=== PATIENT | male | born 1930 | race Caucasian/White ===

== ENCOUNTER 2019-12-30 13:42 | Observation (INO) | payer OTHER ==
[~2019-12-30] VITALS: Ht 188 cm; Wt 77.6 kg
[2019-12-30 16:47] LABS: HEMATOCRIT 37.8 % (42.0-52.0); HEMOGLOBIN 12.6 gm/dL (14.0-18.0); MCH 32.5 pg (26.0-34.0); MCHC 33.3 g/dL (28.0-37.0); MCV 97.8 fL (80.0-100.0); RBC 3.86 mil/uL (4.50-6.00); RDW 13.1 % (10.5-14.5); WBC 5.7 thou/uL (4.0-11.0)
--- NOTE | 2019-12-30 17:00 | EKG ---
[facility] [place] [address] ELECTROCARDIOGRAM REPORT Name: MAIDHA KAUR Room #: 201-P ADM IN M.R.#: [id number] Admission: 12/30/19 Attend Phys: Sincere Slaughter MD, Discharge: Date of : 34 Report #: [id number] THIS REPORT FOR: cc: FAM - Family physician unknown FAM - Family physician unknown Carlton Chavarria MD [facility] ~ THIS REPORT FOR: //name// [facility] Test Date: 2019-12-30 Test Time: 16:38:46 Pat Name: MADIHA KAUR Department: Room: 201 P Gender: M Despatch Clerk: : 1930 Requested By: Dena Heath Order Number: [id number] MD: Carlton Chavarria Measurements Intervals [place] Rate: 61 P: 20 RI: 191 QRS: 37 QRSD: 97 T: 5 QT: 506 QTc: 510 Interpretive Statements Sinus rhythm Abnormal inferior Q waves Nonspecific T abnormalities, lateral leads Prolonged QT interval No previous ECG available for comparison Electronically Signed On 12-30-2019 17:00:13 CASH VAN SALESPERSON by Carlton Chavarria [email or web address] <ELECTRONICALLY SIGNED> By: Carlton Chavarria MD, FACC 12/30/19 1700 1638 37 Carlton Chavarria MD, [facility] /EPI
[2019-12-30 17:40] LABS: ALBUMIN 3.9 g/dL (3.4-5.0); ANION GAP 10 mmol/L (7-16); BUN 21 mg/dL (7-18); CALCIUM 8.6 mg/dL (8.5-10.1); CHLORIDE 107 mmol/L (98-107); CO2 25 mmol/L (21-32); CREATININE 1.1 mg/dL (0.7-1.3); GLUCOSE 107 mg/dL (74-106); POTASSIUM 3.5 mmol/L (3.5-5.1); SGOT 29 U/L (15-37); SGPT 19 U/L (30-65); SODIUM 142 mmol/L (136-145); TOTAL BILIRUBIN 1.5 mg/dL (0.2-1.0); TOTAL PROTEIN 7.5 g/dL (6.4-8.2); TROPONIN-I <0.06 ng/mL (<0.06)
[2019-12-30 18:43] VITALS: BP 148/71
[2019-12-30 19:52] VITALS: BP 169/78
--- NOTE | 2019-12-30 19:53 | NUR ---
NEW ADMIT FOR SOB AND CHEST HEAVINESS. DIRECT ADMIT FOR DR VELÁZQUEZ. ALERTX4 FROM HOME WITH . UP AB GARY. NPO TONIGHT FOR A CATH IN MORNING. ADMISSION COMPLETED. CONSENTS SIGNED. CALLS FOR ASSISTANCE.
[2019-12-30 23:47] VITALS: BP 138/68
[2019-12-31] VITALS (10 sets, daily range): BP systolic 148–182; BP diastolic 63–98
--- NOTE | 2019-12-31 04:52 | NUR ---
ASSUMED PT CARE AT THE CHNAGE OF SHIFT, PT IS AWAKE, ALERT AND ORIENTED, SR ON THE MONITOR, DENIES CHEST PAIN OR SOA, REMAINED NPO AFTER MIDNIGHT, NO ACUTE DISTRESS NOTED, WILL CONTINUE TO MONITOR
--- NOTE | 2019-12-31 07:41 | EKG ---
[facility] [place] [address] ELECTROCARDIOGRAM REPORT Name: MADIHA KAUR Room #: 201-P ADM IN M.R.#: [id number] Admission: 12/30/19 Attend Phys: Sincere Slaughter MD, Discharge: Date of : 34 Report #: [id number] THIS REPORT FOR: cc: ABHINAV - Family physician unknown FAM - Family physician unknown Carlton Chavarria MD [facility] ~ THIS REPORT FOR: //name// [facility] Test Date: 2019-12-31 Test Time: 07:03:27 Pat Name: MADIHA KAUR Department: Room: 201 P Gender: M Machine Bobbin Winder: SBULNANCY : 1930 Requested By: Sincere Slaughter Order Number: [id number] MD: Carlton Chavarria Measurements Intervals [place] Rate: 62 P: 34 AL: 179 QRS: 28 QRSD: 86 T: 19 QT: 519 QTc: 528 Interpretive Statements Sinus rhythm Left atrial enlargement Borderline T wave abnormalities Prolonged QT interval Compared to ECG 12/30/2019 16:38:46 Atrial abnormality now present Inferior Q waves no longer present Q waves no longer present T-wave abnormality still present Electronically Signed On 12-31-2019 7:41:41 CLINICAL PROJECT ASSISTANT by Carlton Chavarria [email or web address] <ELECTRONICALLY SIGNED> By: Carlton Chavarria MD, FACC 12/31/19 0741 2 2 Carlton Chavarria MD, FACC /EPI
[2019-12-31] MEDS ORDERED: CLOPIDOGREL75 MG PO (09:57)
[2019-12-31] MEDS ORDERED: FLORINEF ACETA0.1 MG PO ×2 (09:57→11:26)
[2019-12-31] MEDS ORDERED: SIMVASTATIN80 MG PO (11:13)
[2019-12-31] MEDS ORDERED: FISH OIL 1,001000 M3 PO (11:15)
[2019-12-31] MEDS ORDERED: NITROSTAT0.3 MG SUBLING (11:17)
[2019-12-31] MEDS ORDERED: SINGULAIR 10 MG10 MG PO (11:19)
[2019-12-31] MEDS ORDERED: RANITIDINE PO (11:24)
[2019-12-31] MEDS ORDERED: LISINOPRIL20 MG PO (11:25)
[2019-12-31] MEDS ORDERED: FLUNISOLIDE25 ML NASAL (11:27)
[2019-12-31] MEDS ORDERED: ASA81BEC PO (11:28)
[2019-12-31] MEDS ORDERED: PLAVIX 75 MG TA75 MG PO (11:28)
--- NOTE | 2019-12-31 12:50 | 2DMMODE ---
[facility] [place] [address] 2 D/M-MODE ECHOCARDIOGRAM Name: MADIHA KAUR Room #: 201-P ADM Mikala M.R.#: [id number] Admission: 12/30/19 Attend Phys: Sincere Slaughter MD, Discharge: Date of : 34 Report #: [id number] THIS REPORT FOR: cc: FAM - Family physician unknown FAM - Family physician unknown Cesario Ivory MD [facility] ~ APPROVED REPORT Study performed: 12/31/2019 10:50:13 EXAM: Comprehensive 2D, Doppler, and color-flow Echocardiogram Patient Location: Bedside Room #: 201 Status: routine BSA: 2.03 HR: 51 bpm BP: 156/87 mmHg Rhythm: Bradycardia Other Information Study Quality: Good Indications CAD Chest Pain Hypertension/HDD AVR 2D Dimensions RVDd: 40.27 mm IVSd: 9.59 (7-11mm) LVOT Diam: 19.38 (18-24mm) LVDd: 55.38 mm PWd: 11.50 (7-11mm) Ascending Ao: 28.10 (22-36mm) LVDs: 37.23 (25-40mm) Aortic Root: 26.99 mm IVC: 22.00 mm Volumes Left Atrial Volume (Systole) Single Plane 4CH: 80.76 mL Single Plane 2CH: 88.60 mL LA ESV Index: 45.00 mL/m2 Aortic Valve AoV Peak Fransisco.: 2.25 m/s AO Peak Gr.: 20.25 mmHg LVOT Max P.79 mmHg [facility] [address] [place] [address] 2 D/M-MODE ECHOCARDIOGRAM Name: MADIHA KAUR Room #: 201-P [facility] IN M.R.#: [id number] Admission: 12/30/19 Attend Phys: Sincere Slaughter, Discharge: Date of : 34 Report #: [id number] LVOT Max V: 1.20 m/s RACHEL Vmax: 1.58 cm2 Mitral Valve E/A Ratio: 0.7 MV Decel. Time: 369.65 ms MV E Max Fransisco.: 0.65 m/s MV A Fransisco.: 0.89 m/s MV PHT: 107.20 ms IVRT: 152.25 ms Pulmonary Valve PV Peak Fransisco.: 1.40 m/s PV Peak Gr.: 7.82 mmHg Pulmonary Vein P Vein S: 0.61 m/s P Vein A: 0.23 m/s P Vein D: 0.36 m/s P Vein A Dur.: 101.5 msec P Vein S/D Ratio: 1.69 Tricuspid Valve TR Peak Fransisco.: 3.02 m/s TR Peak Gr.: 36.49 mmHg PA Pressure: 46.00 mmHg Left Ventricle The left ventricle is normal size. There is normal LV segmental wall motion. There is normal left ventricular wall thickness. The left ventricular systolic function is normal. The left ventricular ejection fraction is within the normal range. LVEF is 55-60%. Mild diastolic dysfunction Right Ventricle The right ventricle is normal size. The right ventricular systolic function is normal. Atria Left atrium is dilated. Right atrium is at the upper limits of normal. 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 No aortic regurgitation is present. There is no aortic valvular stenosis. Mitral Valve The mitral valve is normal in structure. Mild mitral regurgitation. [facility] [place] [address] 2 D/M-MODE ECHOCARDIOGRAM Name: MADIHA KAUR Room #: 201-P ADM IN M.R.#: [id number] Admission: 12/30/19 Attend Phys: Sincere Slaughter, Discharge: Date of : 34 Report #: [id number] No evidence of mitral valve stenosis. Tricuspid Valve The tricuspid valve is normal in structure. There is mild tricuspid regurgitation. Estimated PAP 45 mmHg. There is moderate pulmonary hypertension. Pulmonic Valve The pulmonary valve is normal in structure. There is no pulmonic valvular regurgitation. Great Vessels The aortic root is normal in size. IVC is dilated and collapses >50% with inspiration. Pericardium There is no pericardial effusion. <Conclusion> The left ventricular systolic function is normal. There is normal LV segmental wall motion. LVEF is 55-60%. Mild diastolic dysfunction Left atrium is dilated. 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 No aortic regurgitation or stenosis The mitral valve is normal in structure. Mild mitral regurgitation. There is mild tricuspid regurgitation. Estimated pulmonary artery pressure of 45 mmHg. There is no pericardial effusion. <ELECTRONICALLY SIGNED> By: Cesario Ivory MD, FACC 12/31/19 1250 49 49 Cesario Ivory MD, FACC /INF
--- NOTE | 2019-12-31 16:23 | NUR ---
ASSUMED CARE AT CHANGE OF SHIFT. HEART CATH WITHOUT STENTING. BEDREST WITH RIGHT LEG IMMOBILIZED UNTIL 1300. DC WITH SELF CARE. IV AND TELE REMOVED. REVIEWED DISCHARGE PAPERS AND MEDICATIONS.
--- NOTE | 2019-12-31 17:17 | CATHLAB ---
[facility] [address] [place] [address] INVASIVE PROCEDURE REPORT Name: MADIHA KAUR Room #: 201-P ADM Mikala Weinstein#: [id number] Admission: 12/30/19 Attend Phys: Sincere Slaughter MD, Discharge: Date of : 34 Report #: [id number] THIS REPORT FOR: cc: FAM - Family physician unknown FAM - Family physician unknown Sincere Slaughter MD [facility] ~ APPROVED REPORT Study performed: 12/31/2019 07:59:48 Patient Details The patient is a 89 year-old male Event Personnel Sincere Slaughter Surgical Brace Maker, Julia Thompson RN RN, Ayde Sims RTR Scrub, Virginia Shaffer RT(R)() Monitor, Dinah Degroot RN ssis ssrs developer Performed Art Access - R femoral artery* Earl Access - R femoral vein Right and Left Heart Cath w/or w/o Coronarie [id number] [facility] Hemostasis w/ Mynx Abdominal Aortography 828870 Supravalvular Aortography Injection [id number] ISVA 95505 Initial Mod Sed Same Phys/QHP Gr5y 515916 12903 Mod Sed Same Phys/QHP Ea 136953 Procedure Narrative The patient was brought electively to the Cardiac Catheterization Laboratory and was prepped and draped in a sterile manner. The Right Groin^ was infiltrated with 1% Lidocaine subcutaneous anesthesia. A Right Heart Catheterization was performed with a 6 Fr. [place]bra catheter and pressure were recorded. Cardiac outputs were obtained by the Thermal Dilution method. A PINNACLE 6FR Sheath #[id number] sheath was inserted into the RFA 6F^. Coronary angiography was performed using coronary diagnostic catheters. The right coronary system was accessed and visualized with a JR4 catheter. The left coronary system was accessed and visualized with a JL4 catheter. The left ventricle was accessed and visualized with a PIGTAIL catheter. The patient tolerated the procedure well and there were no complications associated with the procedure. There was no hematoma. Intraoperative Conscious Sedation Fentanyl 50 mcg Versed 1 mg Fluoro Time: 2.[address] [facility] [address] [place] [address] INVASIVE PROCEDURE REPORT Name: MADIHA KAUR Room #: 201-P [facility] IN .R.#: [id number] Admission: 12/30/19 Attend Phys: Sincere Slaughter, Discharge: Date of : 34 Report #: [id number] Dose: DAP 2453.40 cGycm2 Contrast Type and Amount: Omnipaque 100 ml Hemodynamics The right atrial mean pressure is 8 mmHg. The right ventricular pressure is 40/5 mmHg. The pulmonary artery pressure is 34/3 mmHg with a mean of 15 mmHg. The mean pulmonary capillary wedge pressure is 9 mmHg. The aortic pressure is 198/90 mmHg with a mean of 120 mmHg. Conclusion #1. Supravalvular aortogram revealing normal caliber aorta with a prosthetic aortic valve well-seated and trivial aortic insufficiency. 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 Would recommend evaluation by noninvasive means as outpatient. #3 left main with mild distal tapered narrowing mild calcification giving rise to LAD and circumflex. #4 LAD with mild irregularities proximal calcification no occlusive disease #5 circumflex OM nondominant with mild disease. #6 large dominant right coronary previously placed proximal stent widely patent 3040% distal eccentric calcified lesions giving rise to a large PDA STEVAN well preserved. Recommendations and plan: Continue aggressive risk factor modification. No indication for coronary intervention. Will evaluate prosthetic aortic valve by noninvasive means. <ELECTRONICALLY SIGNED> By: Sincere Slaughter MD, FACC 12/31/191716 16 16 Sincree Slaughter MD, FACC /INF
== END 2019-12-31 16:30 | disposition home or self-care (01) ==
LOC: 2N 13:42
PROVIDERS: Nurse Practitioner Adult Health; ADMIT Internal Medicine Cardiovascular Disease; ATTEND Internal Medicine Cardiovascular Disease
DX: R07.89 Other chest pain (principal); I25.10 Atherosclerotic heart disease of native coronary artery without angina pectoris; I35.0 Nonrheumatic aortic (valve) stenosis; I10 Essential (primary) hypertension; E78.5 Hyperlipidemia, unspecified; E78.00 Pure hypercholesterolemia, unspecified; K21.9 Gastro-esophageal reflux disease without esophagitis; N40.0 Benign prostatic hyperplasia without lower urinary tract symptoms; Z87.891 Personal history of nicotine dependence; Z79.899 Other long term (current) drug therapy
CPT/HCPCS: 10081